=== PATIENT | female | born 1950 | race Caucasian/White ===

== ENCOUNTER 2022-11-24 09:46 | Outpatient (CLI) | payer MEDICARE, SELFPAY | END 2022-11-24 09:47 | disposition home or self-care (01) | LOC: RAD 09:48 | PROVIDERS: PCP Family Medicine; Visit Provider Internal Medicine | DX: I48.91 Unspecified atrial fibrillation (principal); I35.1 Nonrheumatic aortic (valve) insufficiency; I34.0 Nonrheumatic mitral (valve) insufficiency | CPT/HCPCS: 93306 ==

== ENCOUNTER 2024-10-21 09:46 | Outpatient (CLI) | payer MEDICARE, SELFPAY | END 2024-10-21 09:47 | disposition home or self-care (01) | LOC: INJ CL 09:47 | PROVIDERS: PCP Family Medicine; Visit Provider Family Medicine | DX: M54.16 Radiculopathy, lumbar region (principal); M51.369 Other intervertebral disc degeneration, lumbar region without mention of lumbar back pain or lower extremity pain | CPT/HCPCS: 64483; J1100; Q9966 ==

== ENCOUNTER 2025-04-28 06:31 | Outpatient (CLI) | payer MEDICARE, SELFPAY ==
[2025-04-28 06:57] VITALS: BP 156/74; PULSE 57; RESP 18; TEMP 36.2; O2SAT 97
[2025-04-28 07:30] VITALS: BP 154/60; PULSE 61; RESP 18; O2SAT 98
--- NOTE | 2025-04-28 07:55 | P.ORPRC_ITS ---
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 COMPLICATIONS: None. SPECIMENS: None. DRAINS: None. PREOPERATIVE ANTIBIOTICS: None INDICATIONS: The patient is a 74-year-old with a history of right hip pain secondary to the above diagnoses. Despite appropriate non operative management, they continue to have symptoms. Operative intervention was recommended. The risks, benefits and expected outcomes were discussed in detail. These included but were not limited to: Infection, bleeding, injury to blood vessel or nerve, venous thromboembolism. All questions were answered to their satisfaction. PROCEDURE: The patient was placed in the lateral decubitus position. The right hip was imaged in the long and short axes with the ultrasound transducer. Normal acoustic landmarks were identified. We then sterilely prepped and draped the skin, and used a sterile probe cover with sterile gel. Local anesthesia was established with 10 mL of a solution containing 2 % lidocaine without epinephrine, 0.5% Marcaine without epinephrine and sodium bicarbonate. An 11 blade was used to incise the skin. The Tenex TX 2 micro tip was used to treat the abductor tendon for a total of 4 minutes and 3 seconds. The incision was Steri-Stripped closed. A dry dressing was applied. Sponge and needle counts were correct x2. The patient tolerated the procedure well. There were no apparent complications. They were discharged to home in satisfactory condition. PLAN: The patient may weightbear as tolerates. Ice, Tylenol and ibuprofen can be used for discomfort. They may ramp up activity as the hip will allow. They will follow up in the office in 6 weeks to assess their progress.
== END 2025-04-28 07:49 | disposition home or self-care (01) ==
LOC: US 06:31
PROVIDERS: PCP Family Medicine; Visit Provider Orthopaedic Surgery
DX: M70.61 Trochanteric bursitis, right hip (principal)
CPT/HCPCS: 27006; 76942; J0665; J2003

== ENCOUNTER 2025-07-20 08:20 | Day surgery (SDC) | payer MEDICARE, SELFPAY ==
[2025-07-20] VITALS (21 sets, daily range): BP systolic 115–161; BP diastolic 62–95; PULSE 54–72; RESP 16–20; TEMP 35.9–36.7; O2SAT 94–100; BMI 27.9
--- NOTE | 2025-07-20 09:10 | W.PM.H&PU ---
History & Physical Update History & Physical Update H&P Reviewed and patient assessed: No changes noted
[2025-07-20] MEDS: LACTATED RINGERS 1000 ML 1,000 ML 100 ML IV ×2 (09:30→12:47)
[2025-07-20] MEDS: SODIUM CHLORIDE 0.9 % (FLUSH) 10 ML SYRINGE IVF ×2 (09:30→19:58)
--- NOTE | 2025-07-20 10:15 | CRLHL7_ITS ---
For Patients: As a result of the Cures Act, medical imaging exams and procedure reports are released immediately into your electronic medical record. You may view this report before your referring provider. If you have questions, please contact your health care provider. Indication: Hip replacement surgery Technique: AP hip fluoroscopic images. Fluoroscopy time 34.6 seconds. Findings/Impression: Hardware from a right total hip arthroplasty is in satisfactory position. Dictated by Ray Saravia MD @ 07/20/2025 2:31:38 PM (Electronically Signed)
[2025-07-20] MEDS: OXYCODONE (CR) 10 MG TAB.ER.12H PO (10:26)
--- NOTE | 2025-07-20 10:29 | SUR.PREOP ---
TIME?OUT:?1030 PT/RN/MDA?VERIFICATION?OF?SURGICAL?SITE,?PROCEDURE,?AND?CONSENT OBTAINED?PRIOR?TO?INVASIVE?PROCEDURE.
[2025-07-20] MEDS: MIDAZOLAM HCL 1 MG/ML inj IVP (10:34)
--- NOTE | 2025-07-20 10:48 | W.PM.NB ---
Nerve Block Nerve Block Time Seen by Provider: 10:45 Date Seen: 07/20/25 Type of block requested by surgeon for post-operative analgesia: JACI/LFCN Side: right Time out performed: Yes Verification of patient name: Yes Verification of date of : Yes Site marking: site marked Name of person performing procedure: Bradley Figueroa Continuous monitoring Was continuous monitoring of O2 sat, B/P, service consultant, recorded every 15 minutes?: Yes Procedure Checklist: sterile prep, needles and gloves Ultrasound guided. Images saved: Yes Medications given in 5ml increments after negative aspiration: Ropivicaine %: 0.5 mL: 30 Needle gauge: 21 Decadron (mg): 10 Patient tolerated procedure well: Yes Additional comments: Injected in 5ml increments after negative aspiration. Block Charges Block Charge (with Pro Fee): Other Periph Nerve Block Use of Ultrasound Machine for Block: Yes- US Guidance/pain block
[2025-07-20] MEDS: TRANEXAMIC ACID 100 MG/ML INJ 1000 MG IV (11:35)
--- NOTE | 2025-07-20 12:41 | P.ORPRC_ITS ---
Procedure Note Date of procedure: 07/20/25 Procedure: PREOPERATIVE DIAGNOSIS: 1. Right hip osteoarthritis, severe, primary POSTOPERATIVE DIAGNOSIS: 1. Right hip osteoarthritis, severe, primary PROCEDURE: 1. Right total hip arthroplasty-anterior approach 2. Intraoperative fluoroscopy interpreted by En Sena M.D. for intraoperative evaluation of arthroplasty implant component positioning and leg length/offset evaluation. Fluoroscopy time was 34.6 seconds. SURGEON: En Sena MD. CORE JAVA SOFTWARE ENGINEER: Ron Bruno PA-C; CORNELIO Sanchez - Of note, a skilled housekeeper and laundry assistant was critical for this case to aid in patient positioning, tissue retraction, limb manipulation/positioning, and closure. ANESTHESIA: Spinal anesthetic EBL: 200 mL IMPLANTS: DePuy J&J uncemented total hip [place] cup size 48, hole eliminator, +4 neutral liner Actis stem, standard offset, size 6 +9 mm ceramic 32mm head COMPLICATIONS: None evident INDICATIONS: The patient is a pleasant 75-year-old female who has experienced severe right hip pain and difficulty bearing weight. Workup included x-rays which revealed severe osteoarthrosis in the hip. Given the deformity, the dysfunction, and the pain, as well as the failure of nonoperative management, recommendation was made for surgery. FINDINGS: Full-thickness chondral loss diffusely throughout the femoral head and acetabulum. Osteophytes around the femoral head/neck junction and perimeter of the acetabulum. Moderate effusion upon entering the joint. DESCRIPTION OF PROCEDURE: Following a thorough discussion of risks, benefits, and alternatives consent was obtained and the right hip was marked. The patient was brought to the operating room and placed supine on the operating table. Induction of anesthesia was undertaken. 1 g IV Ancef and 1 g tranexamic acid was administered within 1 hr of incision preoperatively. Proper time-out was performed identifying proper patient, site, procedure. The operative extremity was prepped and draped in the appropriate sterile fashion using ChloraPrep after the patient was positioned on the [place] table with head in neutral alignment and all bony prominences well padded. C-arm fluoroscopic imaging was utilized to confirm proper pelvis rotation and position, and to get true AP films of both the contralateral left, and the affected right hip. This is for comparison. A longitudinal incision was made starting just distal to the ASIS, aiming distal and lateral at an oblique angle relative to the thigh. The incision was extended distally aiming toward the fibular head. Sharp incision through skin and bovie cautery through the subcutaneous tissue allowed identification of the TFL fascia. This was sharply divided, and the fascia bluntly released from the muscle fibers as we dissected medial. Upon coming to the medial border, we were able to retract the TFL laterally, and penetrated the deeper fascia and identify the crossing circumflex vessels. These were ligated/cauterized. The rectus was elevated from the capsule, and retractors placed laterally and me dially along the femoral neck to help with visualization of the capsule. We then performed an inverted T capsulotomy. The capsule was tagged for later repair. Retractors were placed inside the capsule. The femoral neck was visualized after releasing medially down to the lesser trochanter, along the saddle laterally, and up onto the acetabulum. The femoral neck cut was made in line with our preoperative templating. The head was removed in a single piece, and sized. We turned our attention to acetabular preparation. Initially, the labrum was resected from around the perimeter, the pulvinar was excised, allowing us to visualize the false wall. We started the reaming with a 43 mm reamer. This was medialized down to the true wall. We then enlarged our reamers sequentially up to one size less than the selected cup size. We trialed at the same size and found it to have an excellent fit. The selected cup was then opened, inserted, and impacted in line with the goal of 40? of abduction, and 20-25? of anteversion. This was confirmed on C-arm fluoroscopic imaging to be in the appropriate/goal position. Once the cup was placed we placed a hole eliminator and a liner consistent with preop planning. Attention was turned to the femoral preparation. The limb was extended, externally rotated, and adducted. The posteromedial capsule was released, as retractors were placed allowing excellent access to the proximal femur. Initially a box lidder was followed by canal finder followed by various broaches. We broached sequentially up to the size noted above, found it to have excellent rotational control, and trialing various heads and necks, revealed that appropriate neck offset, and the above noted head size provided the greatest stability, and adventist of length, and offset. C-arm fluoroscopic imaging confirmed position of the stem, as well as leg lengths, which were compared with the pre procedure all fluoroscopic images. Trial implants were removed, the real femoral stem inserted, as was the appropriate head. After reducing, the leg was placed through range of motion and stability was confirmed anterior, posterior, and lateral. A 3 min Betadine soak was then performed, and thorough irrigation with normal saline followed. Closure of the capsule was performed with #1 PDS. Bleeding was confirmed to be controlled at this stage, and the TFL fascia was closed with #0 strata fix. Subcutaneous, and subcuticular closure was performed with 2-0 Stratafix and 4-0 Stratafix, respectively. Dressings were applied, and the patient was awoken from anesthesia and transferred the PACU in stable condition. A skilled housekeeper and laundry assistant was critical for this case to aid in patient positioning, tissue retraction, acetabular and proximal femoral exposure, limb manipulation/positioning, dislocation/relocation, patient safety, and closure. PLAN: 1. Weight bear as tolerated operative extremity. 2. 23 hr perioperative antibiotics. 3. Ice. 4. PT/OT consults for ambulation assistance/mobility education. 5. Social work consult for discharge planning. 6. DVT prophylaxis with at SCDs and Xarelto x5 days followed by aspirin for a total of 1 month.
--- NOTE | 2025-07-20 13:40 | CRLHL7_ITS ---
For Patients: As a result of the Cures Act, medical imaging exams and procedure reports are released immediately into your electronic medical record. You may view this report before your referring provider. If you have questions, please contact your health care provider. Indication: Postop Technique: AP pelvis and lateral view right hip Findings/Impression: Hardware from a right total hip arthroplasty is in satisfactory position. Bone alignment is normal. No sign of acute fracture. Postop changes are within normal limits. Dictated by Ray Saravia MD @ 07/20/2025 2:34:22 PM (Electronically Signed)
--- NOTE | 2025-07-20 13:40 | P.ANES_ITS ---
Anesthesia Charges Start Date/Time Anesthesia Start Date: 07/20/25 Anesthesia Start Time: 11:13 Stop Date/Time Anesthesia Stop Date: 07/20/25 Anesthesia Stop Time: 13:38 Summary Extremes of Age - Over 70 or under 1: NEIGHBORHOOD AIDE Coding CPT Codes CPT Codes: ANESTH HIP ARTHROPLASTY - 17024 ([id number]) P2 - PATIENT W/MILD SYST DISEASE, QZ - NEIGHBORHOOD AIDE SVC W/O DERRICK WORKER BY Additional Codes: Summary - Extremes of Age - Over 70 or under 1: NEIGHBORHOOD AIDE ([id number])
--- NOTE | 2025-07-20 13:40 | W.ANESCHARGE ---
Anesthesia Charges Start Date/Time Anesthesia Start Date: 07/20/25 Anesthesia Start Time: 11:13 Stop Date/Time Anesthesia Stop Date: 07/20/25 Anesthesia Stop Time: 13:38 Summary Extremes of Age - Over 70 or under 1: ORCHESTRATOR Coding CPT Codes CPT Codes: ANESTH HIP ARTHROPLASTY - 86030 ([id number]) P2 - PATIENT W/MILD SYST DISEASE, QZ - ORCHESTRATOR SVC W/O INDUSTRIAL RENDERER BY Additional Codes: Summary - Extremes of Age - Over 70 or under 1: ORCHESTRATOR ([id number])
--- NOTE | 2025-07-20 14:52 | PM.IMCN1 ---
Date of Consult Patient: Suzan Patient Consult date: 07/20/25 Requesting Physician: Orthopedics Primary Care Provider: Aure Avalos MD Consult Narrative Narrative: Crystal Anthony is a 75 year old female with hypertension and hyperlipidemia seen in consultation for postoperative management following right anterior hip arthroplasty. Consult requested by Dr. Sena. Postoperatively she has been chilled but is now warmed up. Her pain is manageable. She has no other concerns. She reports no recent illness or injury. Preop evaluation did not show any concerns for perioperative care. She has had no personal or family history of problems with anesthesia, bleeding or thrombophilia. Review of Systems Narrative: She has some tendency towards constipation and has ongoing problems with urinary incontinence PFSH PFS Medical History (Updated 07/20/25 @ 14:58 by Ministerio Hubbard MD) SCC (squamous cell carcinoma) ?C44.92 - Squamous cell carcinoma of skin, unspecified (ICD-10) TERRI (stress urinary incontinence, female) ?N39.3 - Stress incontinence (female) (male) (ICD-10) Incomplete uterine prolapse ?N81.2 - Incomplete uterovaginal prolapse (ICD-10) Midline cystocele ?N81.11 - Cystocele, midline (ICD-10) Foraminal stenosis of lumbar region ?M48.061 - Spinal stenosis, lumbar region without neurogenic claudication (ICD-10) Sciatica, left side ?M54.32 - Sciatica, left side (ICD-10) Cervical intraepithelial neoplasia grade III with severe dysplasia ?D06.9 - Carcinoma in situ of cervix, unspecified (ICD-10) Lumbosacral radiculopathy at L5 ?M54.17 - Radiculopathy, lumbosacral region (ICD-10) Palpitations ?R00.2 - Palpitations (ICD-10) Varicose veins of both lower extremities ?I83.93 - Asymptomatic varicose veins of bilateral lower extremities (ICD-10) Bunion ?M21.619 - Bunion of unspecified foot (ICD-10) Hypertension ?I10 - Essential (primary) hypertension (ICD-10) Surgical History (Updated 07/20/25 @ 14:58 by Ministerio Hubbard MD) S/P total right hip arthroplasty ?Z96.641 - Presence of right artificial hip joint (ICD-10) History of loop electrosurgical excision procedure (LEEP) ?Z98.890 - Other specified postprocedural states (ICD-10) History of total vaginal hysterectomy (07/27/22) ?Z90.710 - Acquired absence of both cervix and uterus (ICD-10) History of bunionectomy of right great toe ?Z98.890 - Other specified postprocedural states (ICD-10) Previous section ?Z98.891 - History of uterine scar from previous surgery (ICD-10) History of tonsillectomy and adenoidectomy ?Z90.89 - Acquired absence of other organs (ICD-10) History of tubal ligation ?Z98.51 - Tubal ligation status (ICD-10) S/P trigger finger release (08/24/16) ?Z98.890 - Other specified postprocedural states (ICD-10) Hx of breast biopsy ?Z98.890 - Other specified postprocedural states (ICD-10) Family History Mother FH: kidney cancer Mother Alzheimers disease Father High blood pressure Heart problem Social History (Updated 07/20/25 @ 14:55 by Ministerio Hubbard MD) Narrative: She lives with her , Joel in [place]. She does not eights bill is her healthcare power of grants assistant. Code status is full. Their home has 1 step up to a landing and 1 step down or up to the main living areas. She does not smoke. She drinks about once a month What is your current living situation?: I presently have a place to live Problems where you live: no known problems Problems where you live details: na In the past 12 months, utilities in danger of being shut off: no In past 12 months, lack of transportation kept you from medical appts, meetings, work, or getting things needed for daily living: no In the past 12 mos, have been you worried that your food would run out before you had money to buy more?: never true In the past 12 mos, the food you bought just didn't last and you didn't have money to buy more?: never true Smoking Status: Never smoker Do you use any of these nicotine containing products: None Second hand tobacco smoke exposure: No How often do you have a drink containing alcohol: monthly or less How many standard drinks containing alcohol do you have on a typical day: 1 or 2 AUDIT-C Alcohol total score: 1 Non-prescribed substance use: denies use Caffeine: No How often does anyone, including family, friends and others, physically hurt you: never How often does anyone, including family, friends and others, insult or talk down to you: never How often does anyone, including family, friends and others, threaten you with harm: never How often does anyone, including family, friends and others, scream or curse at you: never service: No Meds Home Medications and Allergies Home Medications ?Medication ?Instructions ?Recorded ?Confirmed ?Type atorvastatin 20 mg tablet 20 mg PO HS 02/03/22 07/20/25 History amlodipine 2.5 mg tablet 5 mg PO QDAY 02/25/24 07/20/25 History atenolol 50 mg tablet 50 mg PO BID 02/23/25 07/20/25 History Allergies Allergy/AdvReac Type Severity Reaction Status Date / Time Penicillins Allergy Verified 07/20/25 08:44 Exam Narrative: Exam Narrative: She is alert and appears in no distress. Eyes normal. Oropharynx normal. Neck is supple without mass or adenopathy. Respirations are clear to auscultation. Breathing is unlabored. Cardiovascular: S1, S2, regular rate and rhythm. Abdomen: Bowel sounds active. Abdomen is soft without tenderness or mass. Right hip with bandage over anterior incision. No significant bruising or swelling or erythema. Lower extremities with intact pulses and sensation. Somewhat cool to touch. Intact strength in foot and ankle dorsiflexion plantar flexion bilaterally. Const: Vital Signs, click to edit/add: Vital Signs - 24 hr 07/20/25 09:00 07/20/25 13:35 07/20/25 13:40 Temperature 36.7 C 36.3 C L Pulse Rate 65 61 63 Respiratory Rate 16 16 16 Blood Pressure 143/77 H 121/62 129/63 Pulse Oximetry 98 97 98 Oxygen Delivery Me thod Room Air Room Air 07/20/25 13:45 07/20/25 13:50 07/20/25 13:55 Temperature Pulse Rate 63 60 58 L Respiratory Rate 16 16 16 Blood Pressure 134/63 120/73 115/67 Pulse Oximetry 97 98 99 Oxygen Delivery Me thod 07/20/25 14:00 07/20/25 14:05 Temperature 36.4 C Pulse Rate 59 L 58 L Respiratory Rate 16 16 Blood Pressure 143/71 H 130/75 Pulse Oximetry 96 94 Oxygen Delivery Me thod Room Air Documenting provider has reviewed patient's vital signs: yes Assessment and Plan Assessment and plan (1) S/P total right hip arthroplasty: Problem comment: Anterior approach, Dr. Sena, no apparent complications, 07/20/2025. Status: Acute (2) Hypertension: Problem comment: Continue atenolol postoperatively if tolerated. Hold amlodipine pending blood pressure response to surgery and blood loss Status: Acute Plan 75-year-old female admitted to the hospital for elective right hip arthroplasty. Procedure performed by Dr. Sena. Postoperatively doing well. Resume blood pressures as blood pressure allows. Check hemoglobin in the morning. Venous thromboembolism prophylaxis with rivaroxaban 10 mg daily. Anticipate discharge to home with tomorrow if adequate pain control and making progress with therapy
[2025-07-20] MEDS: ACETAMINOPHEN 500 MG TABLET 1000 MG PO ×2 (17:18→22:59)
--- NOTE | 2025-07-20 18:43 | PC.NURSE ---
Pt arrived to the unit postoperatively @ 1420, accompanied by . Pt AxOx4, pleasant, and cooperative with cares. SL due to adequate PO intake. Advanced to regular diet, tolerated well. Denies nausea during shift. A1 GB W to the bathroom. Pt has partial incontinence/urgency due to hx of sx, per Pt report. Pt reports R hip pain that is managed well with PRN/scheduled medication, reposition, active ice. SCDs in place. CMS intact. Dressing remains CDI. LSCTA on RA. VSS, afebrile. Incentive spirometer education given, Pt tolerating well. Call light within reach. at bedside.
[2025-07-20] MEDS: CEFAZOLIN 1 GM in 0.9 % SODIUM CHLORIDE Mini-bag 100 ML IVPB (19:58)
[2025-07-20] MEDS: ATORVASTATIN CALCIUM 10 MG TABLET 20 MG PO (20:56)
[2025-07-20] MEDS: SENNOSIDES 1 TAB TABLET 2 TAB PO (20:56)
[2025-07-21 02:25] VITALS: BP 137/66; PULSE 61; RESP 18; O2SAT 96
[2025-07-21] MEDS: ACETAMINOPHEN 500 MG TABLET 1000 MG PO ×2 (04:30→10:33)
[2025-07-21] MEDS: CEFAZOLIN 1 GM in 0.9 % SODIUM CHLORIDE Mini-bag 100 ML IVPB (04:31)
[2025-07-21 06:19] LABS: Hematocrit* 32.3 % (33.0-51.0); Hemoglobin* 10.8 gm/dL (12.0-16.0); Immature Granulocytes Pct Auto 0.3 %; Mean Corpuscular HGB Conc 33 gm/dL (32-36); Mean Corpuscular Hemoglobin 28 pg (26-34); Mean Corpuscular Volume 84 fL (80-100); RDW Coefficient of Variation % 13.3 % (11.5-15.5); Red Blood Count* 3.84 m/uL (4.00-5.20); White Blood Count* 11.83 K/uL (4.50-11.00)
[2025-07-21 06:20] LABS: Immature Granulocytes Abs Auto 0.00 K/uL (0.00-0.30); Lymphocytes Absolute Auto 0.60 K/uL (0.90-2.90)
[2025-07-21 06:21] LABS: Slide Review Reflex No
--- NOTE | 2025-07-21 06:25 | PC.NURSE ---
Pt a/o x4, Assist of 1 w/walker. Pt reported pain 2-8/10, pain managed with prn meds. Pt slept throughout shift, pt sleeping comfortably at this time w/family at bedside.
[2025-07-21 07:00] VITALS: RESP 16; O2SAT 95
[2025-07-21 08:15] VITALS: BP 140/56; PULSE 70; RESP 16; O2SAT 95
[2025-07-21] MEDS: RIVAROXABAN 10 MG TABLET PO (09:23)
[2025-07-21] MEDS: SENNOSIDES 1 TAB TABLET 2 TAB PO (09:23)
--- NOTE | 2025-07-21 12:38 | PC.NURSE ---
Discharge: Patient pleasant and cooperative, A&O. VSS, afebrile. Pain controlled on right hip with scheduled medication this shift. Dressing to right hip C/D/I, CMS intact. IV removed with tip intact. Discharge instructions provided, all questions answered. D/C to home with .
--- NOTE | 2025-07-21 20:11 | PM.ORPN ---
Subjective Subjective Date Seen: 07/21/25 Principal diagnosis: Status postop day 1, right total hip arthroplasty - anterior approach Interval history: Patient reports doing well. No acute events over night. Pain managed with scheduled and PRN medications, ice. DVT prophylaxis: Rivaroxaban, SCDs, walking. Denies fevers, chills, aches, N/V, CP, SOB/ANDRADE, or lightheadedness. Not passing flatus. Ortho Exam Narrative Exam Narrative: -Patient appears comfortable in bed; no apparent acute distress. present. -Alert and oriented times 3 -Operative hip swollen; soft tissues supple; no obvious erythema. Ecchymosis minimal. Warmth appropriate -Surgical dressing clean, dry, intact; no obvious drainage, no erythematous streaking peripheral to the bandage -Bilateral calves soft and supple; no significant swelling, edema, tenderness, erythema, discoloration, warmth, or palpable cords -2+ DP/PT pulses, intact dermatomes and myotomes distally (5/5 strength). Mild numbness about the lateral femoral cutaneous nerve distribution. Const Vital Signs, click to edit/add: Vital Signs - 24 hr 07/20/25 23:00 07/20/25 23:00 07/20/25 23:00 Temperature 96.6 F L Pulse Rate [Right Pulse Oximeter] 68 68 Respiratory Rate 20 20 Blood Pressure [Left Arm] 132/68 Pulse Oximetry 96 96 Oxygen Delivery Method Room Air Room Air 07/21/25 02:25 07/21/25 07:00 07/21/25 08:15 Temperature Pulse Rate [Right Pulse Oximeter] 61 70 Respiratory Rate 18 16 16 Blood Pressure [Left Arm] 137/66 140/56 H Pulse Oximetry 96 95 95 Oxygen Delivery Method Room Air Room Air Room Air 07/21/25 08:15 Temperature Pulse Rate [Right Pulse Oximeter] 70 Respiratory Rate 16 Blood Pressure [Left Arm] Pulse Oximetry Oxygen Delivery Method Assessment and Plan Assessment and plan (1) S/P total right hip arthroplasty: Problem details: Anterior approach, Dr. Sena, no apparent complications, 07/20/2025. Status: Acute (2) Hypertension: Problem details: Continue atenolol postoperatively if tolerated. Hold amlodipine pending blood pressure response to surgery and blood loss Status: Acute Plan - Complete 23 hour perioperative antibiotics. - PT/OT consult for education and assistance. - Social work consult for discharge planning - Prescribed analgesics as needed - DVT prophylaxis: Rivaroxaban for 5 days, followed by 81 mg aspirin by mouth twice daily, walking, and SCDs - Anticipation is for discharge to home with today 07/21/2025 if the patient remains medically stable, pain is controlled, and they are safe with mobilization.
== END 2025-07-21 11:20 | disposition home or self-care (01) ==
LOC: OR 08:23 → MEDSURG 08:24
PROVIDERS: Family Medicine; PCP Family Medicine; Visit Provider Orthopaedic Surgery Sports Medicine
PROC: (CPT 27130; principal; 2025-07-20 10:15)
DX: M16.11 Unilateral primary osteoarthritis, right hip (principal); G89.18 Other acute postprocedural pain; I10 Essential (primary) hypertension; E78.5 Hyperlipidemia, unspecified
CPT/HCPCS: 27130; 01214; 36415; 64450; 73501; 76942; 85025; 86850; 86900; 86901; 97110; 97116; 97161; 97165; 97535; 99100; A9270; C1776; J0690; J1100; J2250; J2704; J2795; J3010; J7120